=== PATIENT | female | born 1935 | race Caucasian/White ===

== ENCOUNTER → 2016-06-12 | Outpatient (CLI) | payer OTHER ==
[~2016-06-12] MED LIST: ALLOPURINOL100 MG PO; ASPIRIN81 M1 PO; ATORVASTATIN CA80 MG PO; BETAMETHASONE V15 GM TP; BUMETANIDE2 MG PO; CARVEDILOL25 MG PO; COLCRYS0.6 MG PO; COREG25 MG PO; DAILY VALUE1 EACH PO; FISH OIL 1,0001 EAC7 PO; FISH OIL SOFTG1 EAC1 PO; FLONASE16 G1 BOTH NARES; FLONASE16 G1 NS; FLOVENT 11120 INHALA IH; FLOVENT 22120 INHALA IH; GLIPIZIDE XL5 MG PO; GLIPIZIDE5 MG PO; GLUCOSAMINE S1000 M1 PO; HYDROCODON-ACE1 EAC7 PO; HYDROXYZINE HCL25 MG PO; IMDUR120 MG PO; K-DUR20 MEQ PO; KETOCONAZOLE60 GM TP; KLOR-CON M2020 MEQ PO; LEVOFLOXACIN750 MG PO; LIPITOR80 MG PO; LITE COAT ASPI325 M1 PO; LOSARTAN POTAS100 MG PO; MACROBID100 MG PO; METFORMIN HCL1000 MG PO; METFORMIN HCL500 MG PO; MONTELUKAST SOD10 MG PO; NEXIUM40 MG PO; NITROSTAT0.4 MG SL; NORCO 10/3251 TABLET PO; OMEGA 3 1,0001 EACH PO; PLAVIX75 MG PO; PREDNISONE10 MG PO; PROAIR HFA8.5 GM IH; PROTONIX40 MG PO; PROVENTIL,2.5 MG/3 M IH; ROBITUSSIN AC,T10 ML PO; SALINE NASAL SP45 ML BOTH NARES; SENNA PLUS TAB1 EACH PO; SINGULAIR10 MG PO; SPIRIVA RESPIMAT4 GM IH; ST. JOSEPH ASPI81 MG PO; ULTRAM50 MG PO; VENTOLIN HFA18 GM IH; VICODIN,LORT1 TABLET PO; VITAMIN D31000 UNIT PO; XYZAL5 MG PO; ZETIA10 MG PO
== END | disposition home or self-care (01) ==
DX: M17.11 Unilateral primary osteoarthritis, right knee (principal)
CPT/HCPCS: 97110 GP; 97150 GO; 97161 GP; 97165 GO; G8978 GP; G8979 GP; G8980 GP; G8984 GO; G8985 GO; G8986 GO

== ENCOUNTER 2016-07-02 07:37 | Inpatient (IN) | payer OTHER ==
[~2016-07-02] VITALS: Ht 160 cm; Wt 117.2 kg
[2016-07-02 08:13] LABS: BASE EXCESS -2.4 mEq/L (-3 to +3); BICARBONATE 22.5 mEq/L (22-26); CARBOXY HGB 1.9 % (0-5); COMMENTS - BLOOD GASES A+C+; DEVICE 840; FI02 40 %; MODE NIV; PCO2 38 mm Hg (35-45); PO2 128 mm Hg (80-100); SITE RRA; TOTAL RESP RATE 22 resp/min; pH 7.38 (7.35-7.45)
[2016-07-02 08:14] LABS: PEEP 5 CM/H20; PRES. SUPPORT 14 CM/H2O; TIDAL VOLUME 600 ML
[2016-07-02 08:50] LABS: EOSINOPHIL (%) 0.7 % (0-5); EOSINOPHIL COUNT 0.1 K/uL (0-0.3); IMMATURE GRANULOCYTE (%) 0.3 % (0.0-0.7); IMMATURE GRANULOCYTE COUNT 0.4 K/uL; LYMPHOCYTE COUNT 1.3 K/uL (1.0-2.8); MONOCYTE (%) 3.9 % (3-12); MONOCYTE COUNT 0.5 K/uL (0-0.8); NEUTROPHIL (%) 85.2 % (45-76); NEUTROPHIL COUNT 11.7 K/uL (1.8-6.4)
[2016-07-02 08:59] LABS: HEMATOCRIT 32.6 % (36.0-46.0); INTER. NORMALIZED RATIO 1.2; MCH 29.3 PG (29.0-34.0); MCHC 31.3 G/DL (30.0-36.0); MCV 93.7 FL (83-99); PROTHROMBIN TIME 12.1 (9.2-11.2); RBC DIS.WIDTH-CV 14.9 % (11.8-14.6); RBC DIS.WIDTH-SD 48.3 % (39-53); RED BLOOD COUNT 3.48 M/uL (3.80-5.20); WHITE BLOOD COUNT 13.8 K/uL (4.1-10.2)
[2016-07-02 09:04] LABS: CHLORIDE 103 mEq/L (99-109); POTASSIUM 5.3 mEq/L (3.7-5.4); SODIUM 142 mEq/L (136-147)
[2016-07-02 09:06] LABS: GLUCOSE 272 mg/dL (70-99)
[2016-07-02 09:08] LABS: ANION GAP 17 MEQ/L (2-14)
[2016-07-02 09:10] LABS: GFR ESTIMATE (CALCULATED) 12 mL/min/
[2016-07-02 09:11] LABS: TROP-I INTERPRETATION NEGATIVE; TROPONIN-I 0.03 ng/mL (0.0-0.30); UREA NITROGEN (BUN) 53 mg/dL (9-23)
[2016-07-02] MEDS ORDERED: BACTRIM,SEPT1 TABLET PO (09:56)
[2016-07-02] MEDS ORDERED: TIZANIDINE HCL2 MG PO (09:57)
[2016-07-02] MEDS ORDERED: METFORMIN HCL500 MG PO (09:58)
[2016-07-02] MEDS ORDERED: LIPITOR40 MG PO (10:00)
[2016-07-02] MEDS ORDERED: METOLAZONE5 MG PO (10:00)
[2016-07-02] MEDS ORDERED: CARTIA XT240 MG PO (10:01)
[2016-07-02] MEDS ORDERED: GLUCOSAMINE1000 MG PO (10:02)
[2016-07-02] MEDS ORDERED: GLUCOTROL XL5 MG PO (10:09)
[2016-07-02] MEDS ORDERED: ASPIR 8181 M1 PO (10:10)
[2016-07-02 10:12] LABS: MEAN PLAT.VOLUME 13.5 uM^3 (9.5-12.4); PLAT.SUFFICIENCY ADEQUATE; PLATELET COUNT 201 K/uL (156-360); USER ID MCB
[2016-07-02 10:43] LABS: MAGNESIUM 1.2 mg/dL (1.3-2.7)
[2016-07-02] MEDS ORDERED: VENTOLIN HFA18 GM IH (11:09)
[2016-07-02 11:10] LABS: HDL CHOLESTEROL 42 MG/DL (Desirable>=50); LDL CHOLESTEROL 74 mg/dL (Desirable<100); NON-HDL CHOLESTEROL 102 mg/dL (Desirable<160); TOTAL CHOLESTEROL 144 mg/dL (Desirable<200); TRIGLYCERIDES 141 MG/DL (Normal: <150)
[2016-07-02 13:19] LABS: POINT-OF-CARE METER ID UU14100415
[2016-07-02 15:33] LABS: TROP-I INTERPRETATION NEGATIVE; TROPONIN-I 0.06 ng/mL (0.0-0.30)
[2016-07-02 16:32] VITALS: BP 115/58
[2016-07-02 17:09] LABS: POINT-OF-CARE METER ID UU13113698; POINT-OF-CARE USER ID NUTSLF44
[2016-07-02 18:27] LABS: ADD MIUA? YES; BILIRUBIN NEGATIVE; BLOOD SMALL; COLOR YELLOW ((YELLOW)); GLUCOSE (STRIP) NEGATIVE; KETONES NEGATIVE; LEUKOCYTES TRACE; NITRITE NEGATIVE; PROTEIN (STRIP) NEGATIVE; SPECIFIC GRAVITY 1.011 (1.000-1.030); UROBILINOGEN 0.2 MG/DL (0.2-1.0)
[2016-07-02 18:37] LABS: EPITHELIAL CELLS RARE /HPF; RED BLOOD CELLS 0-5 /HPF (0-5); WHITE BLOOD CELLS CLUMP RARE /HPF (0-5)
[2016-07-02 18:38] LABS: BACTERIA 3+ /HPF; HYALINE CASTS 0-5 /LPF; MUCUS TRACE /LPF
[2016-07-02 18:46] LABS: UR CREATININE CONCENTRATION 72.5 MG/DL
[2016-07-02 18:46] LABS: UR CREATININE CONCENTRATION 72.6 MG/DL
[2016-07-02 20:00] VITALS: BP 108/76
[2016-07-02 21:27] LABS: TROP-I INTERPRETATION NEGATIVE; TROPONIN-I 0.07 ng/mL (0.0-0.30)
[2016-07-03] VITALS (9 sets, daily range): BP systolic 91–109; BP diastolic 48–61
[2016-07-03 06:54] LABS: HEMATOCRIT 28.2 % (36.0-46.0); MCH 28.1 PG (29.0-34.0); MCHC 30.5 G/DL (30.0-36.0); MCV 92.2 FL (83-99); PLATELET COUNT 167 K/uL (156-360); RBC DIS.WIDTH-CV 15.4 % (11.8-14.6); RBC DIS.WIDTH-SD 52.4 % (39-53); RED BLOOD COUNT 3.06 M/uL (3.80-5.20); WHITE BLOOD COUNT 6.8 K/uL (4.1-10.2)
[2016-07-03 07:16] LABS: ALKALINE PHOSPHATASE 47 IU/L (3-129); ANION GAP 13 MEQ/L (2-14); CHLORIDE 99 MEQ/L (99-109); GFR ESTIMATE (CALCULATED) 12 mL/min/; MAGNESIUM 1.4 mg/dl (1.3-2.7); SAMPLE HEMOLYSIS CHECK 0; SAMPLE ICTERIC CHECK 0; SAMPLE LIPEMIA CHECK 0; SODIUM 140 MEQ/L (136-147); TOTAL BILIRUBIN 0.5 MG/DL (0.0-1.0); UREA NITROGEN (BUN) 56 mg/dL (9-23)
[2016-07-03 07:21] LABS: GLUCOSE 91 mg/dL (70-99); POTASSIUM 4.1 MEQ/L (3.7-5.4)
[2016-07-03 07:40] LABS: POINT-OF-CARE METER ID UU14174216
[2016-07-03 11:30] LABS: POINT-OF-CARE METER ID UU14174216
[2016-07-03 16:21] LABS: BASE EXCESS 4.4 mEq/L (-3 to +3); CARBOXY HGB 2.2 % (0-5); METHEMOGLOBIN 1.5 % (0-1.5); pH 7.43 (7.35-7.45)
[2016-07-03 16:23] LABS: BICARBONATE 29.2 mEq/L (22-26); COMMENTS - BLOOD GASES A+C+; DEVICE NC; O2 FLOW 4 L/MIN; PCO2 44 mm Hg (35-45); PO2 76 mm Hg (80-100); SITE LR; TOTAL RESP RATE 20 resp/min
[2016-07-03 17:55] LABS: ANION GAP 11 MEQ/L (2-14); CHLORIDE 96 MEQ/L (99-109); POTASSIUM 3.9 MEQ/L (3.7-5.4); SAMPLE HEMOLYSIS CHECK 0; SAMPLE ICTERIC CHECK 0; SAMPLE LIPEMIA CHECK 0; SODIUM 134 MEQ/L (136-147)
[2016-07-03 18:01] LABS: GFR ESTIMATE (CALCULATED) 12 mL/min/; GLUCOSE 220 mg/dL (70-99); UREA NITROGEN (BUN) 55 mg/dL (9-23)
[2016-07-03 18:04] LABS: HEMATOCRIT 28.5 % (36.0-46.0); MCH 29.3 PG (29.0-34.0); MCHC 31.6 G/DL (30.0-36.0); MCV 92.8 FL (83-99); RBC DIS.WIDTH-CV 15.1 % (11.8-14.6); RBC DIS.WIDTH-SD 51.3 % (39-53); RED BLOOD COUNT 3.07 M/uL (3.80-5.20); WHITE BLOOD COUNT 8.5 K/uL (4.1-10.2)
[2016-07-03 18:07] LABS: MEAN PLAT.VOLUME 13.6 uM^3 (9.5-12.4); PLATELET COUNT 158 K/uL (156-360)
[2016-07-03 21:11] LABS: POINT-OF-CARE METER ID UU14174216
[2016-07-04 03:34] VITALS: BP 97/56
[2016-07-04 06:37] LABS: EOSINOPHIL (%) 1.1 % (0-5); EOSINOPHIL COUNT 0.1 K/uL (0-0.3); IMMATURE GRANULOCYTE (%) 0.3 % (0.0-0.7); LYMPHOCYTE COUNT 1.1 K/uL (1.0-2.8); MONOCYTE COUNT 0.6 K/uL (0-0.8); NEUTROPHIL (%) 74.6 % (45-76); NEUTROPHIL COUNT 5.4 K/uL (1.8-6.4)
[2016-07-04 06:53] LABS: INTER. NORMALIZED RATIO 1.2; PROTHROMBIN TIME 12.2 (9.2-11.2)
[2016-07-04 07:05] LABS: ANION GAP 11 MEQ/L (2-14); CHLORIDE 97 MEQ/L (99-109); GFR ESTIMATE (CALCULATED) 13 mL/min/; GLUCOSE 138 mg/dL (70-99); POTASSIUM 3.6 MEQ/L (3.7-5.4); SAMPLE HEMOLYSIS CHECK 0; SAMPLE ICTERIC CHECK 0; SAMPLE LIPEMIA CHECK 0; SODIUM 136 MEQ/L (136-147); UREA NITROGEN (BUN) 52 mg/dL (9-23); URIC ACID 9.6 mg/dL (3.1-9.2)
[2016-07-04 07:29] VITALS: BP 104/61
[2016-07-04 07:37] LABS: HEMATOCRIT 27.6 % (36.0-46.0); MCH 28.7 PG (29.0-34.0); MCHC 31.2 G/DL (30.0-36.0); MEAN PLAT.VOLUME 13.3 uM^3 (9.5-12.4); PLAT.SUFFICIENCY ADEQUATE; PLATELET COUNT 158 K/uL (156-360); RBC DIS.WIDTH-SD 50.8 % (39-53); USER ID STC; WHITE BLOOD COUNT 7.3 K/uL (4.1-10.2)
[2016-07-04 07:57] LABS: POINT-OF-CARE METER ID UU13113698; POINT-OF-CARE USER ID NUTSLF44
[2016-07-04 11:27] LABS: POINT-OF-CARE METER ID UU13113698; POINT-OF-CARE USER ID NUTSLF44
[2016-07-04 11:40] VITALS: BP 105/55
[2016-07-04 16:00] VITALS: BP 108/54
[2016-07-04 17:01] LABS: POINT-OF-CARE METER ID UU13113698; POINT-OF-CARE USER ID NUTSLF44
[2016-07-04 19:36] VITALS: BP 101/55
[2016-07-04 23:36] VITALS: BP 101/55
[2016-07-05 03:00] VITALS: BP 95/59
[2016-07-05 06:40] LABS: EOSINOPHIL (%) 1.1 % (0-5); EOSINOPHIL COUNT 0.1 K/uL (0-0.3); IMMATURE GRANULOCYTE (%) 0.3 % (0.0-0.7); LYMPHOCYTE COUNT 1.1 K/uL (1.0-2.8); MONOCYTE (%) 6.9 % (3-12); MONOCYTE COUNT 0.6 K/uL (0-0.8); NEUTROPHIL (%) 77.8 % (45-76); NEUTROPHIL COUNT 6.2 K/uL (1.8-6.4)
[2016-07-05 06:51] LABS: INTER. NORMALIZED RATIO 1.1; PROTHROMBIN TIME 11.4 (9.2-11.2)
[2016-07-05 07:01] LABS: ANION GAP 10 MEQ/L (2-14); CHLORIDE 100 MEQ/L (99-109); GFR ESTIMATE (CALCULATED) 15 mL/min/; GLUCOSE 161 mg/dL (70-99); POTASSIUM 3.9 MEQ/L (3.7-5.4); SAMPLE HEMOLYSIS CHECK 0; SAMPLE ICTERIC CHECK 0; SAMPLE LIPEMIA CHECK 0; SODIUM 138 MEQ/L (136-147); UREA NITROGEN (BUN) 51 mg/dL (9-23)
[2016-07-05 07:32] LABS: HEMATOCRIT 27.5 % (36.0-46.0); MCHC 30.5 G/DL (30.0-36.0); MCV 91.7 FL (83-99); RBC DIS.WIDTH-CV 14.6 % (11.8-14.6); RBC DIS.WIDTH-SD 48.6 % (39-53)
[2016-07-05 07:41] LABS: USER ID TLW
[2016-07-05 07:44] LABS: PLATELET COUNT UNABLE TO REPORT K/uL (156-360)
[2016-07-05 07:53] LABS: POINT-OF-CARE METER ID UU14174216; POINT-OF-CARE USER ID ENVKC36
[2016-07-05 08:07] VITALS: BP 126/61
[2016-07-05 11:41] LABS: POINT-OF-CARE METER ID UU14174216; POINT-OF-CARE USER ID ENVKC36
[2016-07-05 12:03] VITALS: BP 118/54
[2016-07-05 15:12] VITALS: BP 131/58
[2016-07-05 16:25] LABS: POINT-OF-CARE METER ID UU14174216; POINT-OF-CARE USER ID ENVKC36
[2016-07-05 20:15] VITALS: BP 125/67
[2016-07-05 21:43] LABS: POINT-OF-CARE METER ID UU13113781
[2016-07-05 23:38] VITALS: BP 118/65
[2016-07-06 03:37] VITALS: BP 118/56
[2016-07-06 07:11] LABS: EOSINOPHIL (%) 0.5 % (0-5); IMMATURE GRANULOCYTE (%) 0.4 % (0.0-0.7); LYMPHOCYTE COUNT 0.9 K/uL (1.0-2.8); MONOCYTE (%) 6.9 % (3-12); MONOCYTE COUNT 0.6 K/uL (0-0.8); NEUTROPHIL (%) 81.4 % (45-76); NEUTROPHIL COUNT 6.9 K/uL (1.8-6.4)
[2016-07-06 07:36] LABS: INTER. NORMALIZED RATIO 1.2; PROTHROMBIN TIME 12.5 (9.2-11.2)
[2016-07-06 07:38] LABS: POINT-OF-CARE METER ID UU14174216; POINT-OF-CARE USER ID ENVKC36
[2016-07-06 07:54] LABS: ANION GAP 13 MEQ/L (2-14); CHLORIDE 99 MEQ/L (99-109); GFR ESTIMATE (CALCULATED) 18 mL/min/; GLUCOSE 163 mg/dL (70-99); POTASSIUM 3.9 MEQ/L (3.7-5.4); SAMPLE HEMOLYSIS CHECK 0; SAMPLE ICTERIC CHECK 0; SAMPLE LIPEMIA CHECK 0; SODIUM 139 MEQ/L (136-147); UREA NITROGEN (BUN) 60 mg/dL (9-23)
[2016-07-06 08:27] VITALS: BP 123/62
[2016-07-06 09:31] LABS: HEMATOCRIT 28.1 % (36.0-46.0); HEMATOLOGY COMMENT 1 SMEAR COMPATIBLE; MCH 29.6 PG (29.0-34.0); MCHC 32.4 G/DL (30.0-36.0); MCV 91.5 FL (83-99); MEAN PLAT.VOLUME 13.4 uM^3 (9.5-12.4); PLAT.SUFFICIENCY ADEQUATE; RBC DIS.WIDTH-CV 14.4 % (11.8-14.6); RBC DIS.WIDTH-SD 47.8 % (39-53); RED BLOOD COUNT 3.07 M/uL (3.80-5.20); USER ID STC; WHITE BLOOD COUNT 8.5 K/uL (4.1-10.2)
[2016-07-06 09:35] LABS: PLATELET COUNT 201 K/uL (156-360)
[2016-07-06 11:48] LABS: POINT-OF-CARE METER ID UU14174216; POINT-OF-CARE USER ID ENVKC36
[2016-07-06 12:00] VITALS: BP 128/64
[2016-07-06 16:10] VITALS: BP 137/64
[2016-07-06 16:30] LABS: POINT-OF-CARE METER ID UU14174216; POINT-OF-CARE USER ID ENVKC36
[2016-07-06 19:30] VITALS: BP 123/66
[2016-07-06 20:45] LABS: POINT-OF-CARE METER ID UU14174216
[2016-07-07 00:15] VITALS: BP 132/80
[2016-07-07 03:43] VITALS: BP 131/67
[2016-07-07 07:00] VITALS: BP 109/58
[2016-07-07 07:08] LABS: EOSINOPHIL (%) 0.1 % (0-5); IMMATURE GRANULOCYTE (%) 0.4 % (0.0-0.7); LYMPHOCYTE COUNT 0.8 K/uL (1.0-2.8); MONOCYTE (%) 5.9 % (3-12); MONOCYTE COUNT 0.4 K/uL (0-0.8); NEUTROPHIL (%) 82.3 % (45-76); NEUTROPHIL COUNT 5.9 K/uL (1.8-6.4)
[2016-07-07 07:36] LABS: INTER. NORMALIZED RATIO 1.4; PROTHROMBIN TIME 14.5 (9.2-11.2)
[2016-07-07 07:54] LABS: ANION GAP 13 MEQ/L (2-14); CHLORIDE 99 MEQ/L (99-109); GFR ESTIMATE (CALCULATED) 18 mL/min/; GLUCOSE 163 mg/dL (70-99); MAGNESIUM 1.8 mg/dl (1.3-2.7); SAMPLE HEMOLYSIS CHECK 0; SAMPLE ICTERIC CHECK 0; SAMPLE LIPEMIA CHECK 0; SODIUM 139 MEQ/L (136-147); UREA NITROGEN (BUN) 67 mg/dL (9-23)
[2016-07-07 07:57] LABS: POINT-OF-CARE METER ID UU13113781; POINT-OF-CARE USER ID NUTSLF44
[2016-07-07 08:09] LABS: HEMATOCRIT 27.4 % (36.0-46.0); MCH 29.9 PG (29.0-34.0); MCHC 32.5 G/DL (30.0-36.0); MCV 91.9 FL (83-99); MEAN PLAT.VOLUME 13.3 uM^3 (9.5-12.4); PLAT.SUFFICIENCY ADEQUATE; PLATELET COUNT 208 K/uL (156-360); RBC DIS.WIDTH-CV 14.4 % (11.8-14.6); RBC DIS.WIDTH-SD 48.3 % (39-53); RED BLOOD COUNT 2.98 M/uL (3.80-5.20); USER ID MCB; WHITE BLOOD COUNT 7.2 K/uL (4.1-10.2)
[2016-07-07 12:28] LABS: POINT-OF-CARE METER ID UU13113781; POINT-OF-CARE USER ID NUTSLF44
[2016-07-07 12:30] VITALS: BP 119/59
[2016-07-07] MEDS ORDERED: LEVOFLOXACIN500 MG PO (13:46)
[2016-07-07] MEDS ORDERED: BUMETANIDE2 MG PO (13:51)
[2016-07-07] MEDS ORDERED: PREDNISONE20 MG PO (13:54)
[2016-07-07] MEDS ORDERED: LEVEMIR100 UNIT/2 SC (13:54)
[2016-07-07] MEDS ORDERED: NOVOLOG PE100 UNITS/ SC (13:55)
[2016-07-07] MEDS ORDERED: ALLOPURINOL100 MG PO (13:55)
[2016-07-07] MEDS ORDERED: HYDROCODON-ACE1 EAC7 PO (13:57)
[2016-07-07 16:32] LABS: POINT-OF-CARE METER ID UU13113781
== END 2016-07-07 17:49 | DRG 308 ==
LOC: EME → EDBD 07:37 → EDOF 09:29 → 4EAST 09:29
PROVIDERS: Emergency Medicine; Internal Medicine; Internal Medicine Cardiovascular Disease; Internal Medicine Nephrology
DX: I48.0 Paroxysmal atrial fibrillation (principal); J96.01 Acute respiratory failure with hypoxia; I50.33 Acute on chronic diastolic (congestive) heart failure; N17.9 Acute kidney failure, unspecified; I13.0 Hypertensive heart and chronic kidney disease with heart failure and stage 1 through stage 4 chronic kidney disease, or unspecified chronic kidney disease; J44.1 Chronic obstructive pulmonary disease with (acute) exacerbation; N18.3 Chronic kidney disease, stage 3 (moderate); E11.22 Type 2 diabetes mellitus with diabetic chronic kidney disease; M10.9 Gout, unspecified; N39.0 Urinary tract infection, site not specified; I25.10 Atherosclerotic heart disease of native coronary artery without angina pectoris; E78.5 Hyperlipidemia, unspecified; Z86.711 Personal history of pulmonary embolism; Z86.718 Personal history of other venous thrombosis and embolism; G89.29 Other chronic pain; M54.9 Dorsalgia, unspecified; G89.4 Chronic pain syndrome; K21.9 Gastro-esophageal reflux disease without esophagitis; Z95.5 Presence of coronary angioplasty implant and graft; J45.909 Unspecified asthma, uncomplicated; E66.01 Morbid (severe) obesity due to excess calories; I35.0 Nonrheumatic aortic (valve) stenosis; D64.9 Anemia, unspecified; E83.42 Hypomagnesemia; Z68.42 Body mass index [BMI] 45.0-49.9, adult
CPT/HCPCS: 36600; 71010; 71020; 76770; 80048; 80048 91; 80053; 80061; 81003; 82043; 82570; 82803; 82948; 83735; 83880; 84100; 84300; 84484; 84550; 85025; 85027; 85610; 85730; 87040; 93005; 93306; 94002; 94640; 94640 76; 94760; 94799; 99202; 99281; 99285; J1644; J1815; J1940; J2270; J2405; J7030; J7512

== ENCOUNTER 2016-07-17 05:56 | Emergency (ER) | payer OTHER ==
[~2016-07-17] VITALS: Ht 160 cm; Wt 119.1 kg
[~2016-07-17 05:56] MED LIST changes: +ASPIR 8181 M1 PO; +BACTRIM,SEPT1 TABLET PO; +CARTIA XT240 MG PO; +GLUCOSAMINE1000 MG PO; +GLUCOTROL XL5 MG PO; +LEVEMIR100 UNIT/2 SC; +LEVOFLOXACIN500 MG PO; +LIPITOR40 MG PO; +METOLAZONE5 MG PO; +NOVOLOG PE100 UNITS/ SC; +PREDNISONE20 MG PO; +TIZANIDINE HCL2 MG PO
[2016-07-17 06:47] LABS: EOSINOPHIL (%) 1.8 % (0-5); EOSINOPHIL COUNT 0.2 K/uL (0-0.3); HEMATOCRIT 31.4 % (36.0-46.0); IMMATURE GRANULOCYTE (%) 0.7 % (0.0-0.7); IMMATURE GRANULOCYTE COUNT 0.1 K/uL; LYMPHOCYTE COUNT 1.8 K/uL (1.0-2.8); MCH 28.9 PG (29.0-34.0); MCHC 31.2 G/DL (30.0-36.0); MCV 92.6 FL (83-99); MEAN PLAT.VOLUME 12.9 uM^3 (9.5-12.4); MONOCYTE (%) 6.3 % (3-12); MONOCYTE COUNT 0.7 K/uL (0-0.8); NEUTROPHIL (%) 74.2 % (45-76); PLATELET COUNT 170 K/uL (156-360); RBC DIS.WIDTH-CV 15.5 % (11.8-14.6); RBC DIS.WIDTH-SD 52.7 % (39-53); RED BLOOD COUNT 3.39 M/uL (3.80-5.20); WHITE BLOOD COUNT 10.7 K/uL (4.1-10.2)
[2016-07-17 07:02] LABS: INTER. NORMALIZED RATIO 1.2; PROTHROMBIN TIME 11.9 (9.2-11.2)
[2016-07-17 07:07] LABS: CHLORIDE 89 mEq/L (99-109); POTASSIUM 3.6 mEq/L (3.7-5.4); SODIUM 135 mEq/L (136-147)
[2016-07-17 07:09] LABS: GLUCOSE 235 mg/dL (70-99)
[2016-07-17 07:10] LABS: ANION GAP 14 MEQ/L (2-14)
[2016-07-17 07:11] LABS: TROP-I INTERPRETATION NEGATIVE; TROPONIN-I 0.04 ng/mL (0.0-0.30)
[2016-07-17 07:13] LABS: GFR ESTIMATE (CALCULATED) 27 mL/min/
[2016-07-17 07:14] LABS: UREA NITROGEN (BUN) 26 mg/dL (9-23)
[2016-07-17 11:53] LABS: TROP-I INTERPRETATION NEGATIVE; TROPONIN-I 0.04 ng/mL (0.0-0.30)
[2016-07-17] MEDS ORDERED: ESOMEPRAZOLE MA40 MG PO (12:59)
[2016-07-17] MEDS ORDERED: LOVENOX100 MG/1 M SC (12:59)
[2016-07-17] MEDS ORDERED: LEVEMIR FL100 UNIT/1 SC (13:00)
[2016-07-17] MEDS ORDERED: LIDOCAINE700 MG TD (13:01)
[2016-07-17] MEDS ORDERED: METOLAZONE5 MG PO (13:02)
[2016-07-17] MEDS ORDERED: MONTELUKAST SOD10 MG PO (13:03)
[2016-07-17] MEDS ORDERED: CHEWABLE-VITE1 EACH PO (13:03)
[2016-07-17] MEDS ORDERED: SENNA-S TABLET1 EACH PO (13:05)
[2016-07-17] MEDS ORDERED: GLUCOSAMINE1000 MG PO (13:06)
[2016-07-17] MEDS ORDERED: ALLOPURINOL100 MG PO (13:06)
[2016-07-17] MEDS ORDERED: OMEGA 3 500 SO1 EACH PO (13:07)
[2016-07-17] MEDS ORDERED: POTASSIUM CHLO20 ME2 PO (13:08)
[2016-07-17] MEDS ORDERED: NOVOLOG PE100 UNITS/ SC (13:09)
[2016-07-17] MEDS ORDERED: TYLENOL REGULA325 MG PO (13:10)
[2016-07-17] MEDS ORDERED: DULCOLAX10 MG PR (13:11)
[2016-07-17] MEDS ORDERED: GLUCAGON1 MG IM (13:11)
[2016-07-17] MEDS ORDERED: FLOVENT DISKUS1 DIS1 IH (13:11)
[2016-07-17] MEDS ORDERED: HYDROCODON-ACE1 EAC7 PO (13:12)
[2016-07-17] MEDS ORDERED: MILK OF MAGNESI10 ML PO (13:13)
[2016-07-17] MEDS ORDERED: NASAL SPRAY30 M4 BOTH NARES (13:14)
[2016-07-17] MEDS ORDERED: MIRALAX17 GM PO (13:14)
[2016-07-17] MEDS ORDERED: NITROGLYCERIN0.4 MG SL (13:15)
[2016-07-17] MEDS ORDERED: VENTOLIN HFA18 GM IH (13:16)
[2016-07-17] MEDS ORDERED: ZOFRAN ODT4 MG PO (13:16)
[2016-07-17 13:20] VITALS: BP 123/72
== END 2016-07-17 13:22 ==
LOC: EME → EDBD 05:56 → EME 13:22
PROVIDERS: Emergency Medicine
DX: J40 Bronchitis, not specified as acute or chronic (principal); R06.00 Dyspnea, unspecified; J44.9 Chronic obstructive pulmonary disease, unspecified; N18.9 Chronic kidney disease, unspecified; E11.9 Type 2 diabetes mellitus without complications; E78.5 Hyperlipidemia, unspecified; I11.0 Hypertensive heart disease with heart failure; I50.9 Heart failure, unspecified; Z95.5 Presence of coronary angioplasty implant and graft; Z88.0 Allergy status to penicillin
CPT/HCPCS: 71010; 78582; 80048; 83880; 84484; 85025; 85610; 85730; 93005; 99281; 99285; A9540; A9567; J2270; J7040

== ENCOUNTER 2016-08-07 11:50 | Inpatient (IN) | payer OTHER ==
[~2016-08-07] VITALS: Ht 160 cm; Wt 112.4 kg
[~2016-08-07 11:50] MED LIST changes: +CHEWABLE-VITE1 EACH PO; +DULCOLAX10 MG PR; +ESOMEPRAZOLE MA40 MG PO; +FLOVENT DISKUS1 DIS1 IH; +GLUCAGON1 MG IM; +LEVEMIR FL100 UNIT/1 SC; +LIDOCAINE700 MG TD; +LOVENOX100 MG/1 M SC; +MILK OF MAGNESI10 ML PO; +MIRALAX17 GM PO; +NASAL SPRAY30 M4 BOTH NARES; +NITROGLYCERIN0.4 MG SL; +OMEGA 3 500 SO1 EACH PO; +POTASSIUM CHLO20 ME2 PO; +SENNA-S TABLET1 EACH PO; +TYLENOL REGULA325 MG PO; +ZOFRAN ODT4 MG PO
[2016-08-07 12:35] LABS: INTER. NORMALIZED RATIO 1.5; PROTHROMBIN TIME 15.7 (9.2-11.2); PTT 29.7 (25-32)
[2016-08-07 12:39] LABS: CHLORIDE 101 mEq/L (99-109); POTASSIUM 3.8 mEq/L (3.7-5.4); SODIUM 141 mEq/L (136-147)
[2016-08-07 12:41] LABS: GLUCOSE 236 mg/dL (70-99)
[2016-08-07 12:42] LABS: ANION GAP 15 MEQ/L (2-14)
[2016-08-07 12:44] LABS: GFR ESTIMATE (CALCULATED) 27 mL/min/
[2016-08-07 12:45] LABS: UREA NITROGEN (BUN) 31 mg/dL (9-23)
[2016-08-07 12:53] LABS: TROP-I INTERPRETATION INDETERMINATE; TROPONIN-I 0.39 ng/mL (0.0-0.30)
[2016-08-07 13:07] LABS: EOSINOPHIL (%) 0.1 % (0-5); HEMATOCRIT 30.4 % (36.0-46.0); IMMATURE GRANULOCYTE (%) 0.4 % (0.0-0.7); INSTRUMENT ABS NEUTROPHIL CT 8.4 K/uL; LYMPHOCYTE COUNT 0.4 K/uL (1.0-2.8); MCH 28.2 PG (29.0-34.0); MCHC 30.9 G/DL (30.0-36.0); MEAN PLAT.VOLUME 13.3 uM^3 (9.5-12.4); MONOCYTE COUNT 0.2 K/uL (0-0.8); NEUTROPHIL (%) 93.1 % (45-76); NEUTROPHIL COUNT 8.4 K/uL (1.8-6.4); PLATELET COUNT 248 K/uL (156-360); RBC DIS.WIDTH-CV 16.3 % (11.8-14.6); RBC DIS.WIDTH-SD 54.5 % (39-53); RED BLOOD COUNT 3.33 M/uL (3.80-5.20)
[2016-08-07 13:08] LABS: MCV 91.3 FL (83-99)
[2016-08-07] MEDS ORDERED: BUMEX1 MG PO (14:35)
[2016-08-07] MEDS ORDERED: 24 HOUR ALLER15.8 ML BOTH NARES (14:37)
[2016-08-07] MEDS ORDERED: GLUCOSAMINE HC500 MG PO (14:38)
[2016-08-07] MEDS ORDERED: LEVEMIR100 UNIT/2 SC (14:52)
[2016-08-07] MEDS ORDERED: PREDNISONE10 MG PO ×2 (15:00→15:02)
[2016-08-07] MEDS ORDERED: SALINE NASAL SP45 ML BOTH NARES (15:04)
[2016-08-07] MEDS ORDERED: COUMADIN5 MG PO (15:06)
[2016-08-07 17:32] LABS: POINT-OF-CARE METER ID UU14174216
[2016-08-07 17:47] VITALS: BP 133/62
[2016-08-07 19:10] LABS: TROP-I INTERPRETATION INDETERMINATE; TROPONIN-I 0.37 ng/mL (0.0-0.30)
[2016-08-07 19:40] VITALS: BP 102/66
[2016-08-07 21:58] LABS: POINT-OF-CARE METER ID UU14174216
[2016-08-07 23:50] VITALS: BP 126/87
[2016-08-08] VITALS (8 sets, daily range): BP systolic 114–140; BP diastolic 60–86
[2016-08-08 01:33] LABS: TROP-I INTERPRETATION INDETERMINATE; TROPONIN-I 0.36 ng/mL (0.0-0.30)
[2016-08-08 07:09] LABS: TROP-I INTERPRETATION INDETERMINATE; TROPONIN-I 0.39 ng/mL (0.0-0.30)
[2016-08-08 07:10] LABS: ANION GAP 13 MEQ/L (2-14); CHLORIDE 100 MEQ/L (99-109); GFR ESTIMATE (CALCULATED) 27 mL/min/; GLUCOSE 189 mg/dL (70-99); POTASSIUM 3.8 MEQ/L (3.7-5.4); SAMPLE HEMOLYSIS CHECK 0; SAMPLE ICTERIC CHECK 0; SAMPLE LIPEMIA CHECK 0; SODIUM 139 MEQ/L (136-147); UREA NITROGEN (BUN) 37 mg/dL (9-23)
[2016-08-08 07:33] LABS: INTER. NORMALIZED RATIO 1.6; PROTHROMBIN TIME 16.3 (9.2-11.2)
[2016-08-08 08:20] LABS: POINT-OF-CARE USER ID NUTSLF44
[2016-08-08 08:34] LABS: EOSINOPHIL (%) 0.1 % (0-5); HEMATOCRIT 27.5 % (36.0-46.0); IMMATURE GRANULOCYTE (%) 0.4 % (0.0-0.7); INSTRUMENT ABS NEUTROPHIL CT 7.3 K/uL; LYMPHOCYTE COUNT 0.8 K/uL (1.0-2.8); MCHC 30.5 G/DL (30.0-36.0); MCV 91.7 FL (83-99); MEAN PLAT.VOLUME 13.2 uM^3 (9.5-12.4); MONOCYTE COUNT 0.3 K/uL (0-0.8); NEUTROPHIL (%) 86.5 % (45-76); NEUTROPHIL COUNT 7.3 K/uL (1.8-6.4); PLATELET COUNT 250 K/uL (156-360); RBC DIS.WIDTH-SD 53.5 % (39-53); WHITE BLOOD COUNT 8.4 K/uL (4.1-10.2)
[2016-08-08] MEDS ORDERED: ALLOPURINOL100 MG PO (20:37)
[2016-08-08] MEDS ORDERED: DIGOXIN125 MCG PO (20:37)
[2016-08-09 04:44] VITALS: BP 142/75
[2016-08-09 06:33] LABS: INTER. NORMALIZED RATIO 1.5
[2016-08-09 07:25] VITALS: BP 120/65
[2016-08-09 07:38] VITALS: BP 159/71
[2016-08-09 07:47] LABS: POINT-OF-CARE METER ID UU13113781
== END 2016-08-09 08:07 | disposition short-term general hospital (02) | DRG 309 ==
LOC: EME → EDBD 11:50 → EDOF 14:59 → 4EAST 14:59
PROVIDERS: Emergency Medicine; Internal Medicine; Internal Medicine Cardiovascular Disease; Student in an Organized Health Care Education/Training Program
DX: I48.91 Unspecified atrial fibrillation (principal); J81.1 Chronic pulmonary edema; I50.9 Heart failure, unspecified; N18.3 Chronic kidney disease, stage 3 (moderate); E11.22 Type 2 diabetes mellitus with diabetic chronic kidney disease; E87.70 Fluid overload, unspecified; I12.9 Hypertensive chronic kidney disease with stage 1 through stage 4 chronic kidney disease, or unspecified chronic kidney disease; I27.2 Other secondary pulmonary hypertension; G89.29 Other chronic pain; J44.9 Chronic obstructive pulmonary disease, unspecified; I25.10 Atherosclerotic heart disease of native coronary artery without angina pectoris; Z95.1 Presence of aortocoronary bypass graft; E78.5 Hyperlipidemia, unspecified; Z86.718 Personal history of other venous thrombosis and embolism; Z86.711 Personal history of pulmonary embolism; I35.0 Nonrheumatic aortic (valve) stenosis; I34.0 Nonrheumatic mitral (valve) insufficiency; Z98.61 Coronary angioplasty status; R06.02 Shortness of breath
CPT/HCPCS: 71010; 80048; 82948; 83880; 84484; 85025; 85610; 85730; 93005; 93306; 94799; J1160; J1650; J1815; J7512

== ENCOUNTER 2016-08-27 10:55 | Day surgery (SDC) | payer OTHER ==
[~2016-08-27] VITALS: Ht 160 cm; Wt 104.8 kg
[~2016-08-27 10:55] MED LIST changes: +24 HOUR ALLER15.8 ML BOTH NARES; +BUMEX1 MG PO; +CARVEDILOL12.5 MG PO; +COUMADIN5 MG PO; +DIGOXIN125 MCG PO; +ELIQUIS2.5 MG PO; +FUROSEMIDE40 MG PO; +GLUCOSAMINE HC500 MG PO; +ONE DAILY COMP1 EAC1 PO
[2016-08-27 11:53] LABS: POINT-OF-CARE METER ID UU14174212
[2016-08-27 12:11] VITALS: BP 146/51
[2016-08-27 14:08] LABS: POINT-OF-CARE METER ID UU13113675
[2016-08-27 15:50] VITALS: BP 166/72
[2016-08-27 16:35] VITALS: BP 132/61
== END 2016-08-27 16:45 | disposition home or self-care (01) ==
LOC: SDC 10:55
PROVIDERS: Orthopaedic Surgery
PROC: 0RBW0ZZ Excision of Right Finger Phalangeal Joint, Open Approach (ICD-10-PCS; principal; 2016-08-27)
DX: M25.441 Effusion, right hand (principal); I10 Essential (primary) hypertension; E11.9 Type 2 diabetes mellitus without complications; N17.9 Acute kidney failure, unspecified; J44.9 Chronic obstructive pulmonary disease, unspecified; Z96.653 Presence of artificial knee joint, bilateral; K21.9 Gastro-esophageal reflux disease without esophagitis; Z79.82 Long term (current) use of aspirin; Z88.0 Allergy status to penicillin; Z88.1 Allergy status to other antibiotic agents; Z91.09 Other allergy status, other than to drugs and biological substances
CPT/HCPCS: 82948; 87070; 87075; 87205; 88304; J1170; J2250; J2405